=== PATIENT | male | born 1985 | race Caucasian/White ===

== ENCOUNTER 2017-10-17 20:20 | Observation (INO) ==
[2017-10-17] MEDS ORDERED: DIPHTHERIA/TETANUS ADULT VACCINE 0.5 ML VIAL IM ONE (22:49)
[2017-10-17] MEDS ORDERED: CLINDAMYCIN INJ 900 MG in PREMIX 1 EACH IV STA (22:50)
[2017-10-17] MEDS ORDERED: SODIUM CHLORIDE 0.9% 1,000 ML IV STA (22:51)
[2017-10-18 00:05] LABS: Basophils # 0.1 10*3/uL (0.0-0.2); Basophils % 0.7 % (0.0-0.8); Eosinophils # 0.3 10*3/uL (0.0-0.87); Eosinophils % 2.8 % (0.00-10.9); Hematocrit 43.4 VOL% (42.0-52.0); Hemoglobin 15.1 GM/DL (14.0-18.0); Immature Granulocytes % 0.3 %; Immature Granulocytes Absolute 0.03 #; Lymphocytes # 2.3 10*3/uL (1.4-4.0); Lymphocytes % 21.4 % (21.2-54.2); Mean Corpuscular HGB Conc 34.8 GM/DL (32-36); Mean Corpuscular Hemoglobin 30 PG (27-34); Mean Corpuscular Volume 86.1 FL (87-102); Mean Platelet Volume 10.2 FL (9.6-12.0); Monocytes # 0.9 10*3/uL (0.11-0.8); Monocytes % 8.1 % (1.7-12.7); Neutrophils # 7.3 10*3/uL (1.4-7.4); Neutrophils % 66.7 % (38.7-73.9); Platelet Count 195 T/CUMM (130-400); Red Blood Count 5.04 MC/CUMM (3.8-5.5); Red Cell Distribution Width 12.1 % (9.3-17.3); White Blood Count 10.9 T/CUMM (4-12)
[2017-10-18 00:20] LABS: Calcium 8.6 MG/DL (8.5-10.1); Osmolality,Calculated 273.7 MOS/KG (273-304); Potassium 3.6 MMOL/L (3.5-5.1)
[2017-10-18] MEDS ORDERED: ONDANSETRON 4 MG/2 ML VIAL IV PRN ×2 (02:59→10:08)
[2017-10-18] MEDS ORDERED: LACTATED RINGERS 1,000 ML IV SCH (02:59)
[2017-10-18] MEDS: MORPHINE 4 MG/1 ML VIAL IV SCH ×2 (03:44→07:56)
[2017-10-18] MEDS ORDERED: DIPHTHERIA/TETANUS ADULT VACCINE 0.5 ML VIAL IM ONE (03:54)
[2017-10-18] MEDS ORDERED: MORPHINE 4 MG/1 ML VIAL IV PRN (10:08)
[2017-10-18] MEDS ORDERED: PROMETHAZINE 25 MG/1 ML VIAL IM PRN (10:08)
[2017-10-18] MEDS: LACTATED RINGERS 1,000 ML IV SCH ×3 (11:39→21:35)
[2017-10-18] MEDS ORDERED: PROPOFOL 200 MG/20 ML VIAL IV ONE (12:27)
[2017-10-18] MEDS ORDERED: ONDANSETRON 4 MG/2 ML VIAL ONE (12:28)
[2017-10-18] MEDS ORDERED: SEVOFLURANE 1 UNIT/15 MINUTE INH ONE (12:28)
[2017-10-18] MEDS ORDERED: fentaNYL 100 MCG/2 ML VIAL ONE (12:28)
[2017-10-18] MEDS ORDERED: MIDAZOLAM 2 MG/2 ML VIAL ONE (12:28)
[2017-10-18] MEDS: SULFAMETHOX/TRIMETHOPRIM 800-160 MG TABLET PO SCH (21:34)
[2017-10-19] MEDS: LACTATED RINGERS 1,000 ML IV SCH (05:12)
[2017-10-19 07:19] VITALS: BP 93/50
[2017-10-19] MEDS: SULFAMETHOX/TRIMETHOPRIM 800-160 MG TABLET PO SCH (08:20)
== END 2017-10-19 10:35 | disposition home or self-care (01) ==
LOC: N.EDINP 20:20 → N.ED 20:20 → N.5E 10-18 00:21
PROVIDERS: ADMIT Surgery; ATTEND Surgery